=== PATIENT | male | born 1995 | race Caucasian/White ===

== ENCOUNTER 2017-03-31 03:34 | Emergency (ER) | payer OTHER ==
[~2017-03-31] VITALS: Ht 172.7 cm; Wt 94.0 kg
[2017-03-31 03:37] VITALS: Ht 172.7 cm; Wt 94.0 kg
[2017-03-31] MEDS ORDERED: HYDROCODONE/APAP (10/325) TAB PO ONE (04:00)
[2017-03-31] MEDS ORDERED: LIDOCAINE 1% (MDV) 20 ML INJ SC ONE (04:00)
--- NOTE | 2017-03-31 04:03 | ERD ---
ER Documentation Chief Complaint Chief Complaint left pinky finger laceration HPI 20-year-old male presents here to emergency department for complaints of left fifth finger laceration after glass broke into the left fifth finger. Patient describes the pain as throbbing pain, 6/10 scale, worse upon touching the area. Bleeding is controlled at this time. Patient denies any foreign body. Patient is able to move the joint without any difficulty. Patient denies any numbness or tingling. ROS All systems reviewed and are negative except as per history of present illness. Medications Home Meds Reported Medications [none] Unknown Strength No Conflict Check 03/31/17 Allergies Allergies: Coded Allergies: latex (Verified Allergy, Unknown, 03/31/17) PMhx/Soc Medical and Surgical Hx: pt denies Medical Hx, pt denies Surgical Hx FmHx Family History: No coronary disease, No diabetes, No other Physical Exam Vitals Vital Signs Date Time Temp Pulse Resp B/P Pulse Ox O2 Delivery O2 Flow Rate FiO2 03/31/17 03:37 98.2 81 20 119/66 100 Physical Exam GENERAL: The patient is well developed and appropriate for usual state of health, in no apparent distress. CHEST: Clear to auscultation bilaterally. There are no rales, wheezes or rhonchi. HEART: Regular rate and rhythm. No murmurs, clicks, rubs or gallops. No S3 or S4. ABDOMEN: Soft, nontender and nondistended. Good bowel sounds. No rebound or guarding. No gross peritonitis. No gross organomegaly or masses. No Muniz sign or McBurney point tenderness. BACK: No midline or flank tenderness. EXTREMITIES: Patient is able to do full range of motion of the left fifth finger without any restriction. Equal pulses bilaterally. There is no peripheral clubbing, cyanosis or edema. No focal swelling or erythema. Full range of motion. Grossly neurovascularly intact. NEURO: Alert and oriented. Cranial nerves 2-12 intact. Motor strength in all 4 extremities with 5/5 strength. Sensation grossly intact. Normal speech and gait. SKIN: Noted 2.5 cm laceration wound of the left fifth finger. No palpable foreign body. There is no apparent rash or petechia. The skin is warm and dry. HEMATOLOGIC AND LYMPHATIC: There is no evidence of excessive bruising or lymphedema. No gross cervical, axillary, or inguinal lymphadenopathy. Results 24 hrs Current Medications Medications (Trade) Dose Ordered Sig/Nery Route PRN Reason Start Time Stop Time Status Last Admin Dose Admin Acetaminophen/ Hydrocodone Bitart ([place] ()) 1 tab ONCE ONCE PO 03/31/17 04:00 03/31/17 04:01 DC 03/31/17 03:52 Lidocaine (Xylocaine 1% (Mdv) 20 ml) 2 ml ONCE ONCE SC 03/31/17 04:00 03/31/17 04:01 DC Patient was given medication for pain here in emergency department, after treatment, patient verbalized feeling much better. Patient's pain is improved. PROCEDURE: Left fifth finger. CLINICAL INDICATION: Pain. TECHNIQUE: Three views including PA, lateral and oblique views of the left fifth finger were obtained. COMPARISON: None. FINDINGS: There is no fracture, dislocation or bone destruction. The joint spaces are within normal limits. Bone mineralization is within normal limits. There is no radiopaque foreign body or abnormal calcification. IMPRESSION: No evidence of fracture or radiopaque foreign body. .Meet Landin MD, Date Time Electronically viewed and signed by .Meet Landin MD, on 03/31/2017 05:15 .T/ CC: CLAUDIA KEN [employer] Procedures/MDM Procedure Note: After obtaining informed consent, the wound was irrigated with 250 ml of normal saline and cleaned with diluted betadine. Using aseptic technique, 3 ml of 1% lidocaine was injected on the subcutaneous tissue of the laceration wound for anesthetic. After the anesthetic, the wound was approximated using 7 interrupted sutures of 5-0 /Ethilon. After the procedure, the wound was well approximated. Patient tolerated procedure well. Bacitracin was applied on the area and a dry dressing. Finger metal splint applied afterwards Medical Decision Making: Patient has a laceration on the left fifth finger, this was repaired without any difficulty. No foreign body noted. There is no suspicion for neurovascular compromise. Patient has intact sensation and circulation of the affected extremity. There is low suspicion for septic arthritis. Patient does not have any fever. Radiology exams of the affected area does not show any fracture or dislocation. Disposition: Home. Patient is given prescription for ibuprofen for pain, Keflex to prevent infection, tramadol for severe pain. Patient was advised to elevate the affected area and apply ice on affected area. Patient was advised that if symptoms are worse, numbness, tingling, high fever, unable to move joint, worsening symptoms, to return to emergency department immediately. Otherwise, patient is advised to follow up with the primary care doctor in 2 days for wound check, suture removal in 10 days Disclaimer: Inadvertent spelling and grammatical errors are likely due to EHR/ dictation software use and do not reflect on the overall quality of patient care. Also, please note that the electronic time recorded on this note does not necessarily reflect the actual time of the patient encounter. Departure Diagnosis: Primary Impression: Finger laceration Encounter type: initial encounter Finger: little finger Damage to nail status: without damage Foreign body presence: without foreign body Laterality: left Qualified Code: S61.217A - Laceration of left little finger without foreign body without damage to nail, initial encounter Condition: Stable Patient Instructions: Laceration, Hand Additional Instructions: Patient is given prescription for ibuprofen for pain, Keflex to prevent infection, tramadol for severe pain. Patient was advised to elevate the affected area and apply ice on affected area. Patient was advised that if symptoms are worse, numbness, tingling, high fever, unable to move joint, worsening symptoms, to return to emergency department immediately. Otherwise, patient is advised to follow up with the primary care doctor in 2 days for wound check, suture removal in 10 days CLAUDIA KEN NP Mar 31, 2017 04:03
--- NOTE | 2017-03-31 05:15 | RADRPT ---
PROCEDURE: Left fifth finger. CLINICAL INDICATION: Pain. TECHNIQUE: Three views including PA, lateral and oblique views of the left fifth finger were obta ined. COMPARISON: None. FINDINGS: There is no fracture, dislocation or bone destruction. The joint spaces are within normal limits. Bone mineralization is within normal limits. There is no radiopaque foreign body or abnormal calcif ication. IMPRESSION: No evidence of fracture or radiopaque foreign body. .Meet Landin MD, Date Time Electronically viewed and signed by .Meet Landin MD, MD on 03/31/2017 05:15 .T/
[2017-03-31] MEDS ORDERED: CEPH-443 PO (05:39)
[2017-03-31] MEDS ORDERED: TRAM50TA2 PO (05:39)
[2017-03-31] MEDS ORDERED: IBUP-1542 PO (05:39)
== END 2017-03-31 05:40 | disposition home or self-care (01) ==
LOC: FTE 03:34
DX: S61.217A Laceration without foreign body of left little finger without damage to nail, initial encounter (principal); W25.XXXA Contact with sharp glass, initial encounter; Y92.9 Unspecified place or not applicable
CPT/HCPCS: 73140